=== PATIENT | female | born 1955 | race Caucasian/White ===

== ENCOUNTER 2024-11-30 20:31 | Inpatient (IN) ==
[2024-11-30] MEDS ORDERED: IOPAMIDOL 100 ML BOTTLE IV ONE (20:32)
[2024-11-30] MEDS: ONDANSETRON 4 MG/2 ML VIAL IV ONE (20:49)
[2024-11-30] MEDS: ASPIRIN 81 MG TAB.CHEW CHEWED ONE (20:49)
[2024-11-30 20:59] LABS: Basophils # (Auto) 0.04 K/mcL (0.00-0.30); Basophils % (Auto) 0.3 % (0.0-2.0); Eosinophils # (Auto) 0.12 K/mcL (0.00-0.70); Eosinophils % (Auto) 0.8 % (0.0-7.0); Hemoglobin 15.9 g/dL (11.2-15.7); Lymphocytes # (Auto) 1.35 K/mcL (1.50-4.80); Lymphocytes % (Auto) 9.3 % (15.5-49.0); Mean Cell Volume 90.9 fL (80.0-100.0); Mean Corpuscular HGB Conc 32.4 g/dL (31.0-36.0); Mean Platelet Volume 9.9 fL (8.8-12.5); Monocytes # (Auto) 0.73 K/mcL (0.10-0.90); Neutrophils % (Auto) 84.5 % (38.0-78.0); Platelet Count 310 K/mcL (140-440); RBC 5.39 M/mcL (3.59-5.38); Red Cell Distribution Width 11.8 % (11.5-14.5); WBC 14.5 K/mcL (4.5-11.0)
[2024-11-30 21:17] LABS: ALT/SGPT 71 U/L (<40); AST/SGOT 40 U/L (<32); Albumin 4.7 gm/dL (3.2-5.2); Albumin/Globulin Ratio 1.6 (1.0-2.3); Alkaline Phosphatase 107 U/L (39-117); Bilirubin,Total 0.4 mg/dL (0.1-1.0); Blood Urea Nitrogen 19 mg/dL (8-23); Calcium 9.5 mg/dL (8.6-10.4); Carbon Dioxide 21 mmol/L (22-30); Chloride 97 mmol/L (96-108); Globulin 2.9 gm/dL (2.2-3.7); Glomerular Filtration Rate 74; Glucose 134 mg/dL (70-105); Potassium 4.2 mmol/L (3.3-5.1); Sodium 134 mmol/L (133-145)
[2024-11-30] MEDS: amLODIPine 5 MG TABLET PO ONE (21:23)
[2024-11-30] MEDS: LISINOPRIL 20 MG TABLET PO ONE (21:23)
[2024-11-30] MEDS: KETOROLAC 15 MG/ML VIAL IV ONE (22:28)
[2024-11-30] MEDS: 0.9 % SODIUM CHLORIDE 1,000 ML IV ONE (22:28)
[2024-12-01 00:17] LABS: Appearance,Urine Clear (Clear); Bilirubin,Urine Negative (Negative); Color,Urine Yellow; Glucose,Urine (UA) Negative (Negative); Ketones,Urine 15(1+) mg/dL (Negative); Leukocyte Esterase,Urine Negative /uL (Negative); Nitrate,Urine Negative (Negative); Protein,Urine Negative (Negative); Urine Blood Negative ery/mcL (Negative); Urine RBC 0 /hpf (0-3); Urine Squamous Epithelial Cell 5 /hpf (0-4); Urine WBC 0 /hpf (0-4); Urobilinogen,Urine Normal
[2024-12-01] MEDS: morphine 2 MG/ML VIAL IV ONE ×2 (01:22→05:18)
[2024-12-01] MEDS: PIPERACILLIN SODIUM/TAZOBACTAM 3.375 GM in DEXTROSE 5% IN WATER 50 ML IV ONE (01:22)
[2024-12-01] MEDS: ONDANSETRON 4 MG/2 ML VIAL IV ONE (05:18)
[2024-12-01] MEDS: DEXTROSE 5%-1/2NS W/10MEQ KCL 1,000 ML IV SCH (11:39)
[2024-12-01] MEDS: PIPERACILLIN SODIUM/TAZOBACTAM 4.5 GM in 0.9 % SODIUM CHLORIDE 100 ML IV SCH (12:08)
[2024-12-01] MEDS: PIPERACILLIN SODIUM/TAZOBACTAM 4.5 GM in DEXTROSE 5% IN WATER 50 ML IV SCH (15:00)
[2024-12-02 06:24] LABS: Hematocrit 42.9 % (34.1-44.9); Mean Cell Volume 92.3 fL (80.0-100.0); Mean Corpuscular HGB Conc 32.6 g/dL (31.0-36.0); Mean Platelet Volume 10.3 fL (8.8-12.5); Platelet Count 257 K/mcL (140-440); RBC 4.65 M/mcL (3.59-5.38); Red Cell Distribution Width 12.1 % (11.5-14.5); WBC 10.4 K/mcL (4.5-11.0)
[2024-12-02 06:43] LABS: Blood Urea Nitrogen 13 mg/dL (8-23); Calcium 8.9 mg/dL (8.6-10.4); Carbon Dioxide 24 mmol/L (22-30); Chloride 102 mmol/L (96-108); Glomerular Filtration Rate 64; Glucose 154 mg/dL (70-105); Potassium 3.8 mmol/L (3.3-5.1); Sodium 138 mmol/L (133-145)
[2024-12-02] MEDS: ASPIRIN 81 MG TAB.CHEW ONE (11:08)
[2024-12-02] MEDS ORDERED: ONDANSETRON 4 MG/2 ML VIAL ONE (11:11)
[2024-12-02] MEDS ORDERED: MIDAZOLAM 2 MG/2 ML VIAL ONE (11:11)
[2024-12-02] MEDS ORDERED: TRANEXAMIC ACID 1,000 MG/10 ML VIAL ONE (11:11)
[2024-12-02] MEDS ORDERED: LIDOCAINE 2% PF 5 ML VIAL ONE (11:11)
[2024-12-02] MEDS ORDERED: DEXAMETHASONE 10 MG/ML VIAL ONE (11:11)
[2024-12-02] MEDS ORDERED: METOCLOPRAMIDE 10 MG/2 ML VIAL ONE (11:11)
[2024-12-02] MEDS ORDERED: ROCURONIUM 10 MG/ML ML IV ONE (11:11)
[2024-12-02] MEDS ORDERED: PROPOFOL 200 MG/20 ML VIAL IV ONE (11:11)
[2024-12-02] MEDS ORDERED: GLYCOPYRROLATE 0.2 MG/ML VIAL IV ONE (11:11)
[2024-12-02] MEDS ORDERED: FAMOTIDINE/PF 20 MG/2 ML VIAL IV ONE (11:11)
[2024-12-02] MEDS ORDERED: KETAMINE 50 MG/ML ML ONE (11:12)
[2024-12-02] MEDS ORDERED: HYDROmorphone 0.5 MG/0.5 ML SYRINGE ONE (12:48)
[2024-12-02] MEDS ORDERED: LABETALOL HCL 20 MG/4 ML VIAL IV ONE (13:49)
[2024-12-02] MEDS: BUPIVACAINE W/EPI 0.25% 50 ML VIAL IJ ONE (14:10)
[2024-12-02] MEDS ORDERED: ONDANSETRON 4 MG/2 ML VIAL IV PRN (14:17)
[2024-12-02] MEDS ORDERED: DROPERIDOL 5 MG/2 ML VIAL IV PRN (14:17)
[2024-12-02] MEDS ORDERED: IPRATROPIUM/ALBUTEROL 3 ML AMPUL.NEB NEB PRN (14:17)
[2024-12-02] MEDS ORDERED: fentaNYL 100 MCG/2 ML VIAL IV PRN (14:17)
[2024-12-02] MEDS ORDERED: HYDROmorphone 0.5 MG/0.5 ML SYRINGE IV PRN (14:17)
[2024-12-02] MEDS ORDERED: SUGAMMADEX SODIUM 200 MG/2 ML VIAL IV ONE (14:23)
[2024-12-02] MEDS: LACTATED RINGERS 1,000 ML IV SCH (15:27)
[2024-12-02] MEDS: ONDANSETRON 4 MG/2 ML VIAL IV PRN (15:27)
[2024-12-02] MEDS: HYDROmorphone 0.5 MG/0.5 ML SYRINGE IV PRN (16:49)
[2024-12-03 06:10] LABS: Hematocrit 39.9 % (34.1-44.9); Hemoglobin 13.3 g/dL (11.2-15.7); Mean Cell Volume 90.3 fL (80.0-100.0); Mean Corpuscular HGB Conc 33.3 g/dL (31.0-36.0); Mean Platelet Volume 10.3 fL (8.8-12.5); Platelet Count 266 K/mcL (140-440); RBC 4.42 M/mcL (3.59-5.38); Red Cell Distribution Width 11.8 % (11.5-14.5); WBC 14.1 K/mcL (4.5-11.0)
[2024-12-03 06:46] LABS: Blood Urea Nitrogen 12 mg/dL (8-23); Calcium 8.7 mg/dL (8.6-10.4); Carbon Dioxide 22 mmol/L (22-30); Chloride 100 mmol/L (96-108); Glomerular Filtration Rate 64; Glucose 234 mg/dL (70-105); Potassium 3.8 mmol/L (3.3-5.1); Sodium 136 mmol/L (133-145)
[2024-12-03] MEDS ORDERED: HYDROcodone/APAP 5/325MG TABLET PO PRN (11:09)
[2024-12-03] MEDS: DEXTROSE 5%-1/2NS W/10MEQ KCL 1,000 ML IV SCH (11:17)
[2024-12-03] MEDS: ACETAMINOPHEN 650 MG/65 ML BAG IV PRN (11:22)
[2024-12-04 08:17] VITALS: TEMP 98.4
[2024-12-04] MEDS: LISINOPRIL 20 MG TABLET PO SCH (08:19)
[2024-12-04] MEDS: amLODIPine 5 MG TABLET PO SCH (08:19)
[2024-12-04] MEDS: metFORMIN 500 MG TABLET PO SCH (08:19)
[2024-12-04 16:05] VITALS: O2SAT 95
== END 2024-12-04 16:00 | disposition home or self-care (01) | DRG 419 ==
LOC: ED 20:31 → INTOOBSV 12-01 10:51 → MEDSUR 12-01 10:51
PROVIDERS: ADMIT Surgery Surgical Critical Care; ATTEND Surgery Surgical Critical Care